=== PATIENT | female | born 1940 | race Caucasian/White ===

== ENCOUNTER 2024-12-26 09:54 | Emergency (ER) | payer MEDICARE, OTHER ==
[2024-12-26] MEDS ORDERED: Lidocaine 1%/Epinephrine 1:100K 10 ML VIAL ONE (10:19)
[2024-12-26] MEDS ORDERED: Acetaminophen 500 MG TAB ONE (11:33)
== END 2024-12-26 12:15 | disposition home or self-care (01) ==
LOC: BURERS 09:54
DX: S51.012A Laceration without foreign body of left elbow, initial encounter (principal); S00.93XA Contusion of unspecified part of head, initial encounter; R91.1 Solitary pulmonary nodule; I10 Essential (primary) hypertension; E78.5 Hyperlipidemia, unspecified; E03.9 Hypothyroidism, unspecified; Z79.890 Hormone replacement therapy; Z79.899 Other long term (current) drug therapy; W19.XXXA Unspecified fall, initial encounter
CPT/HCPCS: 12002; 70450; 71250; 72125; 72131